=== PATIENT | female | born 1955 | race Caucasian/White ===

== ENCOUNTER 2018-09-15 08:47 | Outpatient (CLI) | payer MEDICARE ==
--- NOTE | 2018-09-15 10:36 | MRI ---
MRI THORACIC SPINE WITHOUT CONTRAST: Date: 09/15/18 HISTORY: Back pain. FINDINGS: The vertebral body heights are marrow signal are maintained. Disc desiccation is seen at multiple lev els in the thoracic spine. There are degenerative changes manifested by osteophyte formation. There a re degenerative changes in the costovertebral joints. There is a central right and right paracentral disc bulge at T7-8 level causing effacement of the ant erior thecal sac and mild impingement of the anterior spinal cord. No cord edema, syringomyelia, or m yelomalacia is seen. The neural foramina appear patent. IMPRESSION: Thoracic spondylosis with focal disc bulge at T7-T8 level causing mild impingement of the anterior sp inal cord. POS: [facility]
--- NOTE | 2018-09-15 10:41 | MRI ---
CERVICAL SPINE MRI WITHOUT IV CONTRAST: HISTORY: Cervical pain and shoulder pain. Numbness in both hands. FINDINGS: Visualized lower brain appears unremarkable. Soft tissue neck appears unremarkable. Generalized dis k desiccation changes with some ligament and facet hypertrophic changes. C2-C3: No significant stenosis. C3-C4: Small central disk-osteophyte without significant foraminal stenosis. C4-C5: Small central disk-osteophyte without other significant stenosis. C5-C6: Disk-osteophyte with mild central canal and lateral recess stenosis. No significant foramina l stenosis. C6-C7: Central and right paracentral disk-osteophyte with moderate central canal stenosis and modera te right lateral recess stenosis and right foraminal stenosis. C7-T1: No significant stenosis. No spinal cord mass or spinal cord mass or spinal cord signal. No significant abnormal marrow signal. IMPRESSION: Disk-osteophytosis with some multilevel mostly mild to moderate central canal, lateral recess, and fo raminal stenosis as above. POS: [facility]
--- NOTE | 2018-09-15 11:35 | MRI ---
LUMBAR SPINE MRI NONCONTRAST: INDICATION: Lumbago, multiple sits, lower extremity radiculopathy. FINDINGS: Vertebral body heights are maintained as is spinal alignment. The conus medullaris is normal in morp hology and terminates at the T12-L1 level. No acute marrow edema or acute disk space edema. The attila ged retroperitoneum reveals no significant pathology. There is moderate bilateral multilevel degenerative facet hypertrophy. L5-S1: There is a broad-based disk-osteophyte, which is superimposed upon congenital AP diameter julia rowing of the vertebral canal with moderate central canal stenosis. There is no high-grade foraminal stenosis. L4-5: Superimposition of broad-based disk-osteophyte and central zone disk protrusion upon congenita l narrowing of the vertebral canal which results in severe central canal stenosis. There is no high- grade foraminal stenosis. L3-4: Concentric disk bulge is present with mild central canal stenosis. There is crowding of the b ilateral traversing L4 nerve roots. No high-grade foraminal stenosis. L2-3: Broad-based disk bulge results in mild central canal stenosis. There is mild effacement of th e anterior perineural fat of the right neural foramen. No high-grade left foraminal stenosis. L1-2: No significant compromise of central canal or neural foramina. IMPRESSION: Multilevel degenerative change of the lumbar spine superimposed upon congenital AP diameter narrowing . This does result in severe central canal stenosis at L4-5, as delineated above. POS: [facility]
== END 2018-09-15 08:48 | disposition home or self-care (01) ==
LOC: BICMRI 08:47
PROVIDERS: ATTEND Family Medicine
DX: M54.40 Lumbago with sciatica, unspecified side (principal); M48.061 Spinal stenosis, lumbar region without neurogenic claudication; M47.816 Spondylosis without myelopathy or radiculopathy, lumbar region; M48.02 Spinal stenosis, cervical region; M47.814 Spondylosis without myelopathy or radiculopathy, thoracic region; M51.9 Unspecified thoracic, thoracolumbar and lumbosacral intervertebral disc disorder; M25.78 Osteophyte, vertebrae; G95.89 Other specified diseases of spinal cord
CPT/HCPCS: 72141; 72146; 72148

== ENCOUNTER 2019-03-24 06:33 | Day surgery (SDC) | payer MEDICARE ==
[2019-03-23 10:44] VITALS: BMI 34.3
--- NOTE | 2019-03-23 13:19 | HP ---
HISTORY OF PRESENT ILLNESS: Ms. Mata is a pleasant 63-year-old woman, here today to discuss many years of chronic lower back pain that in August 2018 turned into severe bilateral radiculopathies that would fit well in L5 pattern. She also describes numbness in the bilateral hands, most significant on the right. She states any prolonged sitting, standing, or walking makes her back and legs much worse. Her hand symptoms are worse at night, which sounds very much like carpal tunnel. She has had an epidural steroid injection with Dr. Guevara, which resulted in significant improvement in her back and lower extremity pains; however, they still persist just much less severe. MRI from [place] reveals [id number] bilateral lateral recess stenosis at L4-L5 that would fit well with her lumbar spine symptoms. PHYSICAL EXAMINATION: GENERAL: She is alert and oriented x3. Gait is severely antalgic and slowed. EXTREMITIES: Lower extremity motor exam is normal. She has a positive straight leg raise bilaterally. Positive median nerve Tinel's on the right with some sensory disturbance to the first three digits of the right hand as compared to the left. ASSESSMENT: Lumbar spinal stenosis and carpal tunnel syndrome of the right hand. PAST MEDICAL HISTORY: Significant for hypercholesterolemia, chronic pain syndrome, depression, anxiety, arthritis, seasonal allergies, hepatitis C which is cured in 2008, hypertension, bladder trouble, gastric ulcers. PAST SURGICAL HISTORY: Thoracotomy and two shoulder surgeries. MEDICATIONS: 1. Latuda. 2. Gabapentin. 3. Naproxen. 4. Lisinopril. 5. Aspirin. 6. Nexium. 7. Paxil. 8. Ibuprofen. ALLERGIES: TO SULFA. PLAN: Dr. Godinez met with the patient, reviewed imaging, advocated for an L4-L5 decompression and right carpal tunnel release. He explained to the patient the risks, benefits, and alternatives to the procedure. The patient expressed understanding and elected to move forward with surgery as discussed. I do believe the patient is mentally competent and capable of making medical decisions for herself. We will move forward with surgery as planned. Job ID: [id number]
[2019-03-24] MEDS ORDERED: Thrombin 5000 UNITS/5 ML VIAL ONE (09:43)
[2019-03-24] MEDS ORDERED: Bupivacaine PF 0.5% 30 ML VIAL ONE (09:43)
[2019-03-24] MEDS ORDERED: EPINEPHrine 1 MG/ML AMP ONE (09:43)
[2019-03-24] MEDS ORDERED: Lidocaine 1% w/Epinephrine 1:200K 30 ML VIAL ONE (09:58)
[2019-03-24] MEDS ORDERED: Fentanyl 100 MCG/2 ML VIAL ONE ×2 (10:28→12:17)
[2019-03-24] MEDS ORDERED: SUGAMMADEX SODIUM 200 MG/2 ML VIAL ONE (11:54)
[2019-03-24] MEDS ORDERED: Rocuronium Bromide 10 MG/ML (10ML VIAL) ONE (12:39)
[2019-03-24] MEDS ORDERED: Ondansetron PF 4 MG/2 ML Vial ONE (12:39)
[2019-03-24] MEDS ORDERED: Lidocaine 1% PF 5 ML VIAL ONE (12:39)
[2019-03-24] MEDS ORDERED: PHENYLEPHRINE-NS 100 MCG/ML 10 ML SYRINGE ONE (12:39)
[2019-03-24] MEDS ORDERED: PROPOFOL 200 MG/20 ML VIAL ONE (12:39)
--- NOTE | 2019-03-24 12:40 | OP ---
DATE OF PROCEDURE: 03/24/2019 COMPLIANCE REPRESENTATIVE: Yuniel Saenz PA-C INDICATION: Pain. DIAGNOSES: Lumbar stenosis and right carpal tunnel syndrome. PROCEDURES PERFORMED: 1. L4-L5 lumbar decompression. 2. Right carpal tunnel release. ANESTHESIA: General. DESCRIPTION OF PROCEDURE: The patient was brought into the operating room and placed under general anesthesia. She was flipped from the supine to prone position on the operating room table. A linear incision was planned over the L4-L5 segment. After prepping and draping and after an appropriate operative pause, the incision was created. The soft tissues were swept away from midline. Self-retaining retractors were placed in the wound for optimal exposure. After confirming the appropriate level with C-arm fluoroscopy, the laminectomy at L4-L5 was performed. Using a high-speed cutting drill bit 2, 3, and 4 mm Kerrisons, the laminectomy was extended laterally to encompass the medial third of facet joints in order to adequately decompress the lateral recesses. After completing the decompression, the wound was irrigated. Hemostasis was maintained throughout. The wound was then closed in anatomic layers, and a pressure dressing was applied. There were no known procedural complications. The patient was then flipped over to a supine position, where the right arm was prepped and draped up to the level of the axilla. A linear incision was planned across the crease in the wrist along the long axis of the fourth digit. This area was infiltrated with lidocaine with epinephrine. After repeating the operative pause, the incision was created. A self-retaining retractor was placed. The carpal tunnel ligament was identified and incised. The incision was extended in both proximal and distal directions until the carpal tunnel elements were decompressed. The wound was then irrigated. Hemostasis was maintained throughout. The wound was then closed in a single-layer technique. The procedure came to an end without any known complication. Job ID: [id number]
[2019-03-24] MEDS ORDERED: HYDROcodone/Acetaminophen 5/325 mg Tablet ONE (13:18)
== END 2019-03-24 14:09 | disposition home or self-care (01) ==
LOC: SDC 06:33
PROVIDERS: ATTEND Neurological Surgery
PROC: 01NB0ZZ Release Lumbar Nerve, Open Approach (ICD-10-PCS; principal; 2019-03-24)
PROC: 01N50ZZ Release Median Nerve, Open Approach (ICD-10-PCS; 2019-03-24)
DX: M48.061 Spinal stenosis, lumbar region without neurogenic claudication (principal); G56.01 Carpal tunnel syndrome, right upper limb; G89.4 Chronic pain syndrome; I10 Essential (primary) hypertension; E78.00 Pure hypercholesterolemia, unspecified; F41.9 Anxiety disorder, unspecified; F32.9 Major depressive disorder, single episode, unspecified; Z79.82 Long term (current) use of aspirin; Z79.899 Other long term (current) drug therapy; Z88.2 Allergy status to sulfonamides
CPT/HCPCS: 76000; 93005; 93010; J0171; J0690; J2001; J2405; J2704; J3010; S0020

== ENCOUNTER 2020-10-31 09:05 | Outpatient (CLI) | payer MEDICARE | END 2020-10-31 09:06 | disposition home or self-care (01) | LOC: BICMRI 09:05 | PROVIDERS: ATTEND Orthopaedic Surgery Hand Surgery | DX: M87.038 Idiopathic aseptic necrosis of left carpus (principal); M19.032 Primary osteoarthritis, left wrist ==

== ENCOUNTER 2020-12-14 08:40 | Outpatient (CLI) | payer MEDICARE | END 2020-12-14 08:41 | disposition home or self-care (01) | LOC: ULT 08:40 | PROVIDERS: ATTEND Internal Medicine Hematology & Oncology | DX: K74.60 Unspecified cirrhosis of liver (principal); R16.1 Splenomegaly, not elsewhere classified; B18.2 Chronic viral hepatitis C; K80.20 Calculus of gallbladder without cholecystitis without obstruction | CPT/HCPCS: 76700 ==

== ENCOUNTER 2021-09-20 09:24 | Outpatient (CLI) | payer OTHER ==
[2021-09-20 11:15] LABS: #Eosinphils 0.2 10x3/uL (0.0-0.5); #Monocytes 0.7 10x3/uL (0.0-1.1); #Neutrophils 2.9 10x3/uL (1.5-8.4); %Basophils 0.5 % (0.0-2.0); %Eosinophils 2.9 % (0.0-6.0); %Lymphocytes 32.9 % (18.0-47.0); %Monocytes 12.6 % (0.0-10.0); %Neutrophils 50.8 % (40.0-75.0); Mean Corpuscular HGB CONC 34.1 g/dL (32.0-36.0); Mean Corpuscular Hemoglobin 29.8 pg (27.0-33.0); Mean Corpuscular Volume 87.4 fl (81.6-98.3); Mean Platelet Volume 10.9 fl (7.4-10.4); Platelet Count 121 10x3/uL (150-450); RBC Distribution Width 13.2 % (11.5-14.5); White Blood Cell (WBC) Count 5.8 10x3/uL (3.5-10.5)
[2021-09-20 11:42] LABS: Bilirubin Neg (Negative); Blood, Urine Negative (Negative); Clarity Clear (Clear); Glucose, Urine (Dipstick) Normal (Negative); Ketone, Urine Negative (Negative); Leukocyte Negative (Negative); Nitrite Negative (Negative); Protein, Urine (Dipstick) Negative (Neg-Trace); Urobilinogen Normal mg/dL (Less than 2)
[2021-09-20 13:14] LABS: Bacteria/HPF None Seen HPF (None Seen); RBC/HPF 0-3 HPF (0-3); Squamous Epithelial 0-3 HPF (0-3); WBC/HPF 0-3 HPF (0-3)
== END 2021-09-20 09:25 | disposition home or self-care (01) ==
LOC: LABBT 09:24
PROVIDERS: ATTEND Orthopaedic Surgery Hand Surgery
DX: Z01.812 Encounter for preprocedural laboratory examination (principal); M19.032 Primary osteoarthritis, left wrist; M87.9 Osteonecrosis, unspecified; Z20.822 Contact with and (suspected) exposure to COVID-19
CPT/HCPCS: 81001; 85025; 87811

== ENCOUNTER 2021-09-25 06:27 | Day surgery (SDC) | payer MEDICARE, OTHER ==
[2021-09-21 13:30] VITALS: BMI 34.3
[2021-09-25] MEDS ORDERED: Fentanyl 100 MCG/2 ML VIAL ONE (07:16)
[2021-09-25] MEDS ORDERED: Midazolam HCl 2 mg/2 ml Vial ONE (07:16)
[2021-09-25] MEDS ORDERED: Betamet Acet/Betamet Na Ph 30 MG/5 ML VIAL ONE (07:34)
[2021-09-25] MEDS ORDERED: Thrombin 5000 UNITS/5 ML VIAL ONE (07:34)
[2021-09-25] MEDS ORDERED: Bupivacaine PF 0.5% 30 ML VIAL ONE (07:34)
[2021-09-25] MEDS ORDERED: Neomycin-Polymyxin 1 ML AMP ONE (07:34)
[2021-09-25] MEDS ORDERED: Bacitracin Zinc Ointment 30 gm TUBE ONE (07:34)
[2021-09-25] MEDS ORDERED: CEFAZOLIN 2 GM VIAL ONE (08:06)
[2021-09-25] MEDS ORDERED: Sodium Chloride 0.9% 100 ML ONE (08:06)
[2021-09-25] MEDS ORDERED: fentaNYL Citrate/PF 100 MCG/2 ML SYRINGE ONE (08:14)
[2021-09-25] MEDS ORDERED: PROPOFOL 200 MG/20 ML VIAL ONE (08:17)
[2021-09-25] MEDS ORDERED: Dexamethasone 20 MG/5 ML VIAL ONE (08:17)
[2021-09-25] MEDS ORDERED: Ketorolac Tromethamine 30 MG/ML VIAL ONE (08:17)
[2021-09-25] MEDS ORDERED: Phenylephrine 10 MG/ML VIAL ONE (08:17)
[2021-09-25] MEDS ORDERED: Glycopyrrolate 0.2 MG/ML 5 ML SYRINGE ONE (08:17)
[2021-09-25] MEDS ORDERED: Ondansetron PF 4 MG/2 ML Vial ONE (08:17)
[2021-09-25] MEDS ORDERED: Bupivacaine HCl 0.5%/Epinephrine 1:200,000/PF 30 ml Vial ONE (08:17)
[2021-09-25] MEDS ORDERED: Rocuronium Bromide 10 MG/ML (10ML VIAL) ONE (08:17)
[2021-09-25] MEDS ORDERED: Neostigmine Methylsulfate 3 MG/3 ML SYRINGE ONE (08:17)
== END 2021-09-25 14:13 | disposition home or self-care (01) ==
LOC: SDC 06:27
PROVIDERS: ATTEND Orthopaedic Surgery Hand Surgery
PROC: 0RGP04Z Fusion of Left Wrist Joint with Internal Fixation Device, Open Approach (ICD-10-PCS; principal; 2021-09-25)
PROC: 0RGP0KZ Fusion of Left Wrist Joint with Nonautologous Tissue Substitute, Open Approach (ICD-10-PCS; 2021-09-25)
DX: M19.132 Post-traumatic osteoarthritis, left wrist (principal); M87.838 Other osteonecrosis of left carpus; J44.9 Chronic obstructive pulmonary disease, unspecified; Z79.82 Long term (current) use of aspirin; Z79.890 Hormone replacement therapy; Z79.899 Other long term (current) drug therapy; Z88.2 Allergy status to sulfonamides
CPT/HCPCS: 25999; 73100; 76000; C1713 ×5; C1894; J0690; J0702; J1100; J1885; J2250; J2370; J2405; J2704; J3010; J3490; S0020

== ENCOUNTER 2021-11-15 10:13 | Outpatient (CLI) | payer OTHER ==
[2021-11-15 11:52] LABS: #Eosinphils 0.2 10x3/uL (0.0-0.5); #Monocytes 0.6 10x3/uL (0.0-1.1); #Neutrophils 2.5 10x3/uL (1.5-8.4); %Basophils 0.8 % (0.0-2.0); %Eosinophils 3.5 % (0.0-6.0); %Lymphocytes 31.7 % (18.0-47.0); %Monocytes 12.4 % (0.0-10.0); %Neutrophils 51.4 % (40.0-75.0); Mean Corpuscular HGB CONC 33.8 g/dL (32.0-36.0); Mean Corpuscular Hemoglobin 29.1 pg (27.0-33.0); Mean Corpuscular Volume 86.2 fl (81.6-98.3); Mean Platelet Volume 10.8 fl (7.4-10.4); Platelet Count 204 10x3/uL (150-450); RBC Distribution Width 13.2 % (11.5-14.5); Red Blood Cell (RBC) Count 4.12 10x6/uL (3.90-5.03); White Blood Cell (WBC) Count 4.8 10x3/uL (3.5-10.5)
[2021-11-15 12:10] LABS: Anion Gap 13 mmol/L (10-20); BUN (Urea Nitrogen) 4 mg/dL (9.8-20.1); Calc. Creatinine Clearance 0 mL/min (70-130); Calcium 9.9 mg/dL (7.8-10.44); Carbon Dioxide 26 mmol/L (23-31); Chloride 95 mmol/L (98-107); Estimated GFR 79; Glucose 97 mg/dL (80-115); Potassium 3.7 mmol/L (3.5-5.1); Sodium 130 mmol/L (136-145)
== END 2021-11-15 10:14 | disposition home or self-care (01) ==
LOC: LABBT 10:13
PROVIDERS: ATTEND Orthopaedic Surgery Hand Surgery
DX: Z01.818 Encounter for other preprocedural examination (principal); Z20.822 Contact with and (suspected) exposure to COVID-19
CPT/HCPCS: 80048; 85025; 87811; 93005; 93010

== ENCOUNTER 2021-11-20 11:26 | Day surgery (SDC) | payer MEDICARE, OTHER ==
[2021-11-19 10:29] VITALS: BMI 34.3
[2021-11-20] MEDS ORDERED: Midazolam HCl 2 mg/2 ml Vial ONE (13:58)
[2021-11-20] MEDS ORDERED: Ketamine 50 MG/ML (10ML VIAL) ONE (13:58)
[2021-11-20] MEDS ORDERED: fentaNYL Citrate/PF 100 MCG/2 ML SYRINGE ONE (13:58)
[2021-11-20] MEDS ORDERED: Propofol 500 MG/50 ML VIAL ONE (13:59)
[2021-11-20] MEDS ORDERED: Sodium Chloride 0.9% 100 ML ONE (14:01)
[2021-11-20] MEDS ORDERED: CEFAZOLIN 2 GM VIAL ONE (14:01)
[2021-11-20] MEDS ORDERED: PHENYLEPHRINE-NS 100 MCG/ML 10 ML SYRINGE ONE (14:10)
[2021-11-20] MEDS ORDERED: Dexamethasone 20 MG/5 ML VIAL ONE (14:10)
[2021-11-20] MEDS ORDERED: Ondansetron PF 4 MG/2 ML Vial ONE (14:10)
[2021-11-20] MEDS ORDERED: PROPOFOL 200 MG/20 ML VIAL ONE (14:10)
[2021-11-20] MEDS ORDERED: Bupivacaine PF 0.5% 30 ML VIAL ONE (14:29)
[2021-11-20] MEDS ORDERED: Bacitracin Zinc Ointment 30 gm TUBE ONE (14:29)
[2021-11-20] MEDS ORDERED: Neomycin-Polymyxin 1 ML AMP ONE (14:29)
[2021-11-20] MEDS ORDERED: Acetaminophen/Codeine 30-300mg Tablet ONE ×2 (16:13)
== END 2021-11-20 16:45 | disposition home or self-care (01) ==
LOC: SDC 11:26
PROVIDERS: ATTEND Orthopaedic Surgery Hand Surgery
PROC: 0LT60ZZ Resection of Left Lower Arm and Wrist Tendon, Open Approach (ICD-10-PCS; principal; 2021-11-20)
PROC: 0XP70YZ Removal of Other Device from Left Upper Extremity, Open Approach (ICD-10-PCS; 2021-11-20)
DX: T84.84XA Pain due to internal orthopedic prosthetic devices, implants and grafts, initial encounter (principal); M67.834 Other specified disorders of tendon, left wrist; M87.039 Idiopathic aseptic necrosis of unspecified carpus; M19.132 Post-traumatic osteoarthritis, left wrist; L03.818 Cellulitis of other sites; I10 Essential (primary) hypertension; E78.00 Pure hypercholesterolemia, unspecified; J44.9 Chronic obstructive pulmonary disease, unspecified; F41.9 Anxiety disorder, unspecified; F31.9 Bipolar disorder, unspecified; E07.9 Disorder of thyroid, unspecified; K76.0 Fatty (change of) liver, not elsewhere classified; F17.210 Nicotine dependence, cigarettes, uncomplicated; Z20.822 Contact with and (suspected) exposure to COVID-19; Z79.899 Other long term (current) drug therapy; Z88.2 Allergy status to sulfonamides; Z98.890 Other specified postprocedural states
CPT/HCPCS: 87070; 87102; 87205; 87206; J0690; J1100; J2250; J2405; J2704; J3490; S0020

== ENCOUNTER 2023-11-19 19:52 | Inpatient (IN) | payer OTHER ==
[2023-11-19] MEDS: Lorazepam 2 MG/ML VIAL ONE (23:01)
[2023-11-19] MEDS ORDERED: Ondansetron ODT 4 MG TAB PO PRN (23:16)
[2023-11-19] MEDS ORDERED: Ondansetron PF 4 MG/2 ML Vial IVP PRN (23:16)
[2023-11-20] MEDS: Lorazepam 2 MG/ML VIAL SLOW IVP SCH (00:20)
[2023-11-20 00:54] VITALS: BMI 26.6
[2023-11-20] MEDS: Sodium Chloride 0.9% 500 ML IV SCH (01:30)
[2023-11-20] MEDS: Sodium Chloride 0.9% 1,000 ML IV SCH (01:30)
[2023-11-20] MEDS ORDERED: Sterile Water 10 ML VIAL FS PRN (03:45)
[2023-11-20] MEDS: Ziprasidone 20 MG VIAL IM SCH (04:03)
[2023-11-20] MEDS: FLU (Fluad Triv) TS24-25 (65UP)/MF59C/PF 45 MCG/0.5 ML Syringe IM ONE (04:06)
[2023-11-20 04:42] LABS: Anion Gap 10 mmol/L (10-20); BUN (Urea Nitrogen) 5 mg/dL (9.8-20.1); Calc. Creatinine Clearance 95 mL/min (70-130); Carbon Dioxide 23 mmol/L (23-31); Chloride 110 mmol/L (98-107); Estimated GFR 95; Glucose 88 mg/dL (80-115); Iron 22 ug/dL (50-170); Iron Binding Capacity, Total 280 mcg/dL (265-497); Potassium 3.3 mmol/L (3.5-5.1); Sodium 140 mmol/L (136-145)
[2023-11-20 05:34] LABS: #Basophils Less than 0.03 10x3/uL (0.0-0.2); %Basophils 0.8 % (0.0-1.0); %Eosinophils 1.6 % (0.0-10.0); %Lymphocytes 32.4 % (21.0-51.0); %Monocytes 12.8 % (0.0-10.0); Hemoglobin 8.5 g/dL (12.0-16.0); Hypochromia SLIGHT = 6-15 cells HPF (0-5); Mean Corpuscular HGB CONC 30.4 g/dL (32.0-36.0); Mean Corpuscular Hemoglobin 24.2 pg (27.0-31.0); Mean Corpuscular Volume 79.8 fL (78.0-98.0); Mean Platelet Volume 10.7 fL (7.4-10.4); Microcytosis SLIGHT = 6-15 cells HPF (0-5); Platelet Adequacy Comment Platelets Normal; Platelet Count 137 10x3/uL (130-400); Polychromasia SLIGHT = 2-3 cells HPF (0-2); RBC Distribution Width 15.8 % (11.5-14.5); Red Blood Cell (RBC) Count 3.51 mill/uL (4.20-5.40)
[2023-11-20 07:06] LABS: Ferritin 89.77 ng/mL (10-291)
[2023-11-20] MEDS: Enoxaparin 40 MG (0.4 mL) SYRINGE SC SCH (08:15)
[2023-11-20] MEDS ORDERED: Dexmedetomidine In 0.9 % NaCl 100 ML IVPB SCH (09:45)
[2023-11-20] MEDS ORDERED: Potassium Chloride 20 MEQ in Premix 2 BAG IVPB SCH (16:30)
[2023-11-20] MEDS ORDERED: Electrolyte Replacement Protocol FS SCH (16:30)
[2023-11-20] MEDS: Potassium Chloride 20 MEQ in Premix 1 BAG IVPB SCH (19:15)
[2023-11-20] MEDS ORDERED: Lurasidone 20 MG TABLET PO SCH (21:00)
[2023-11-20] MEDS: Lurasidone 20 MG TABLET PO SCH (21:48)
[2023-11-21 04:58] LABS: #Basophils Less than 0.03 10x3/uL (0.0-0.2); #Eosinophils Less than 0.03 10x3/uL (0.0-0.7); %Basophils 0.4 % (0.0-1.0); %Eosinophils 0.8 % (0.0-10.0); %Lymphocytes 28.5 % (21.0-51.0); %Monocytes 12.1 % (0.0-10.0); %Neutrophils 57.4 % (42.0-75.0); Hematocrit 28.1 % (36.0-47.0); Hemoglobin 8.6 g/dL (12.0-16.0); Mean Corpuscular HGB CONC 30.6 g/dL (32.0-36.0); Mean Corpuscular Hemoglobin 24.5 pg (27.0-31.0); Mean Corpuscular Volume 80.1 fL (78.0-98.0); Platelet Count 128 10x3/uL (130-400); RBC Distribution Width 16.1 % (11.5-14.5); Red Blood Cell (RBC) Count 3.51 mill/uL (4.20-5.40)
[2023-11-21 05:09] LABS: ALT (SGPT) 12 U/L (8-55); AST (SGOT) 23 U/L (5-34); Albumin 2.7 g/dL (3.4-4.8); Alkaline Phosphatase 105 U/L (40-110); Anion Gap 13 mmol/L (10-20); BUN (Urea Nitrogen) 4 mg/dL (9.8-20.1); Bilirubin, Total 0.7 mg/dL (0.2-1.2); Calc. Creatinine Clearance 113 mL/min (70-130); Calcium 8.9 mg/dL (7.8-10.44); Carbon Dioxide 17 mmol/L (23-31); Chloride 110 mmol/L (98-107); Estimated GFR 100; Globulin 3.5 g/dL (2.4-3.5); Glucose 76 mg/dL (80-115); Magnesium 1.7 mg/dL (1.6-2.6); Potassium 3.6 mmol/L (3.5-5.1); Protein, Total 6.2 g/dL (5.8-8.1); Sodium 136 mmol/L (136-145)
[2023-11-21] MEDS: Lorazepam 2 MG/ML VIAL SLOW IVP PRN (05:40)
[2023-11-21] MEDS: Magnesium 2 GM/50 ML(in water) 2 GM in Premix 1 BAG IVPB SCH (07:56)
[2023-11-21] MEDS: PHOS-NAK 1 PKT PACK PO SCH (07:56)
[2023-11-21] MEDS: Acetaminophen 325 MG TAB PO PRN (07:56)
[2023-11-21] MEDS: Potassium Chloride 20 MEQ in Lactated Ringer's 1,000 ML IV SCH (12:49)
[2023-11-22 04:23] LABS: #Basophils Less than 0.03 10x3/uL (0.0-0.2); %Basophils 0.4 % (0.0-1.0); %Eosinophils 2.1 % (0.0-10.0); %Lymphocytes 29.2 % (21.0-51.0); %Neutrophils 56.9 % (42.0-75.0); Hematocrit 28.4 % (36.0-47.0); Hemoglobin 8.7 g/dL (12.0-16.0); Mean Corpuscular HGB CONC 30.6 g/dL (32.0-36.0); Mean Corpuscular Hemoglobin 24.6 pg (27.0-31.0); Mean Corpuscular Volume 80.2 fL (78.0-98.0); Mean Platelet Volume 9.9 fL (7.4-10.4); Platelet Count 130 10x3/uL (130-400); RBC Distribution Width 15.6 % (11.5-14.5); Red Blood Cell (RBC) Count 3.54 mill/uL (4.20-5.40)
[2023-11-22 04:30] LABS: Anion Gap 12 mmol/L (10-20); BUN (Urea Nitrogen) 4 mg/dL (9.8-20.1); Calc. Creatinine Clearance 110 mL/min (70-130); Calcium 8.9 mg/dL (7.8-10.44); Carbon Dioxide 22 mmol/L (23-31); Chloride 103 mmol/L (98-107); Estimated GFR 99; Glucose 82 mg/dL (80-115); Potassium 3.2 mmol/L (3.5-5.1); Sodium 134 mmol/L (136-145)
[2023-11-22] MEDS: Potassium Chloride 20 MEQ TAB PO SCH (08:45)
[2023-11-22] MEDS: HYDROcodone/Acetaminophen 5/325 mg Tablet PO PRN (12:13)
[2023-11-22] MEDS: Lisinopril 20 MG TAB PO SCH (17:55)
[2023-11-22] MEDS: Ezetimibe 10 MG TAB PO SCH (21:20)
[2023-11-22] MEDS: PARoxetine 20 MG TAB PO SCH (21:20)
[2023-11-23] MEDS: hydrALAZINE 20 MG/ML VIAL SLOW IVP PRN (01:20)
[2023-11-23 04:05] LABS: #Basophils Less than 0.03 10x3/uL (0.0-0.2); %Basophils 0.9 % (0.0-1.0); %Eosinophils 3.3 % (0.0-10.0); %Lymphocytes 27.5 % (21.0-51.0); %Monocytes 13.7 % (0.0-10.0); %Neutrophils 54.1 % (42.0-75.0); Hematocrit 31.2 % (36.0-47.0); Hemoglobin 9.5 g/dL (12.0-16.0); Mean Corpuscular HGB CONC 30.4 g/dL (32.0-36.0); Mean Corpuscular Hemoglobin 24.5 pg (27.0-31.0); Mean Corpuscular Volume 80.6 fL (78.0-98.0); Platelet Count 139 10x3/uL (130-400); RBC Distribution Width 15.8 % (11.5-14.5); Red Blood Cell (RBC) Count 3.87 mill/uL (4.20-5.40)
[2023-11-23 04:22] LABS: Anion Gap 12 mmol/L (10-20); BUN (Urea Nitrogen) Less than 4 mg/dL (9.8-20.1); Calc. Creatinine Clearance 107 mL/min (70-130); Calcium 9.5 mg/dL (7.8-10.44); Carbon Dioxide 21 mmol/L (23-31); Chloride 106 mmol/L (98-107); Estimated GFR 98; Glucose 106 mg/dL (80-115); Potassium 3.4 mmol/L (3.5-5.1); Sodium 136 mmol/L (136-145)
[2023-11-23] MEDS: Levothyroxine Sodium 25 MCG TAB PO SCH (05:28)
[2023-11-23] MEDS: Furosemide 20 MG TAB PO SCH (08:41)
[2023-11-23] MEDS: Oxybutynin ER 5 MG TAB PO SCH (08:41)
[2023-11-23] MEDS: Potassium Chloride 20 MEQ TAB PO SCH (08:41)
[2023-11-23] MEDS: Loratadine 10 MG TAB PO SCH (08:41)
[2023-11-23] MEDS: Aspirin Chewable 81 MG TAB PO SCH (08:41)
[2023-11-23] MEDS: Pantoprazole DR 40 MG TAB PO SCH (08:41)
[2023-11-23] MEDS: Lisinopril 20 MG TAB PO SCH ×2 (08:42→19:55)
[2023-11-23] MEDS ORDERED: Non-Formulary Item 1 EACH (Paroxetine Hcl [Paxil] 30 MG Tablet) PO SCH (09:00)
[2023-11-23] MEDS ORDERED: Lisinopril 2.5 MG TAB PO SCH (09:00)
[2023-11-23] MEDS: Acetaminophen/Codeine 30-300mg Tablet PO PRN (12:16)
[2023-11-23] MEDS: Ibuprofen 600 MG TAB PO PRN (17:27)
[2023-11-23] MEDS: Magnesium Oxide 400 MG TAB PO SCH (19:56)
[2023-11-23] MEDS ORDERED: Non-Formulary Item 1 EACH (Magnesium Oxide [Magnesium] 400 MG Tablet) PO SCH (21:00)
[2023-11-24 04:17] LABS: #Basophils Less than 0.03 10x3/uL (0.0-0.2); %Basophils 0.4 % (0.0-1.0); %Eosinophils 3.6 % (0.0-10.0); %Lymphocytes 35.6 % (21.0-51.0); %Monocytes 16.6 % (0.0-10.0); %Neutrophils 43.4 % (42.0-75.0); Hematocrit 31.4 % (36.0-47.0); Hemoglobin 9.4 g/dL (12.0-16.0); Mean Corpuscular HGB CONC 29.9 g/dL (32.0-36.0); Mean Corpuscular Hemoglobin 24.1 pg (27.0-31.0); Mean Corpuscular Volume 80.5 fL (78.0-98.0); Mean Platelet Volume 10.2 fL (7.4-10.4); Platelet Count 149 10x3/uL (130-400)
[2023-11-24 04:41] LABS: Anion Gap 11 mmol/L (10-20); BUN (Urea Nitrogen) 4 mg/dL (9.8-20.1); Calc. Creatinine Clearance 102 mL/min (70-130); Calcium 9.6 mg/dL (7.8-10.44); Carbon Dioxide 22 mmol/L (23-31); Chloride 107 mmol/L (98-107); Estimated GFR 97; Glucose 98 mg/dL (80-115); Magnesium 1.8 mg/dL (1.6-2.6); Potassium 3.8 mmol/L (3.5-5.1); Sodium 136 mmol/L (136-145)
[2023-11-24] MEDS: Magnesium 2 GM/50 ML(in water) 2 GM in Premix 1 BAG IVPB SCH (08:20)
[2023-11-24] MEDS: Ferrous Sulfate 325 MG TAB PO SCH (08:25)
[2023-11-24 09:53] VITALS: BMI 26.4
[2023-11-24 16:23] VITALS: BP 136/70; TEMP 98.1
== END 2023-11-24 17:05 | disposition home health service (06) | DRG 917 ==
LOC: SURG B 20:57 → IMCU/EMU 23:24 → OBSVTOIN 11-20 10:37 → T4-A 11-23 10:17
PROVIDERS: ADMIT Internal Medicine; ATTEND Family Medicine
DX: T43.621A Poisoning by amphetamines, accidental (unintentional), initial encounter (principal); G92.8 Other toxic encephalopathy; D61.818 Other pancytopenia; K21.9 Gastro-esophageal reflux disease without esophagitis; I10 Essential (primary) hypertension; D64.9 Anemia, unspecified; E83.42 Hypomagnesemia; E87.6 Hypokalemia; R33.9 Retention of urine, unspecified; Z66 Do not resuscitate; F20.9 Schizophrenia, unspecified; F31.9 Bipolar disorder, unspecified; E03.9 Hypothyroidism, unspecified; F17.210 Nicotine dependence, cigarettes, uncomplicated; S42.301D Unspecified fracture of shaft of humerus, right arm, subsequent encounter for fracture with routine healing; W18.30XD Fall on same level, unspecified, subsequent encounter; Z79.899 Other long term (current) drug therapy; Z88.2 Allergy status to sulfonamides; Z88.1 Allergy status to other antibiotic agents; Z98.51 Tubal ligation status
CPT/HCPCS: 36415; 80048; 80053; 82140; 82607; 82728; 83540; 83550; 83735; 84100; 84443; 85025; 93005; 93010; 93306; 97139; J0360; J1650; J2060; J3475; J3480; J3486; J7030; J7120